=== PATIENT | male | born 1965 | race Two or more races ===

== ENCOUNTER 2023-12-18 12:57 | Inpatient (IN) | payer OTHER ==
[2023-12-18 13:29] VITALS: BMI 21.4
[2023-12-18] MEDS ORDERED: POLYETHYLENE GLYCOL (HEALTHYLAX) 3350 17 GM PACKET PO PRN (15:38)
[2023-12-18] MEDS ORDERED: BISMUTH SUBSALICYLATE 524 MG/30 ML PO PRN (15:38)
[2023-12-18] MEDS ORDERED: ONDANSETRON *ODT* 4 MG TABLET SL PRN (15:38)
[2023-12-18] MEDS ORDERED: MAG HYDROX/AL HYDROX/SIMETH 30 ML UNIT-DOSE CUP PO PRN (15:38)
[2023-12-18] MEDS ORDERED: ACETAMINOPHEN 325 MG TABLET (FP) PO PRN (15:38)
[2023-12-18] MEDS ORDERED: NALOXONE HCL (KLOXXADO) 8 MG SPRAY NS PRN (15:38)
[2023-12-18] MEDS ORDERED: BENZONATATE 200 MG CAPSULE PO PRN (15:38)
[2023-12-18] MEDS ORDERED: LOPERAMIDE HCL 2 MG CAPSULE PO PRN (15:38)
[2023-12-18] MEDS ORDERED: BENZOCAINE/MENTHOL (CHLORASEPTIC ) LOZENGE MM PRN (15:38)
[2023-12-18] MEDS ORDERED: DICYCLOMINE HCL 10 MG CAPSULE PO PRN (15:38)
[2023-12-18] MEDS ORDERED: IBUPROFEN 400 MG TABLET (FP) PO PRN (15:38)
[2023-12-18] MEDS ORDERED: guaiFENesin 600 MG TABLET.ER (FP) PO PRN (15:38)
[2023-12-18] MEDS ORDERED: IBUPROFEN 600 MG TABLET (FP) PO PRN (15:38)
[2023-12-18] MEDS ORDERED: NALOXONE HCL 0.4 MG/ML VIAL IM PRN (15:38)
[2023-12-18] MEDS ORDERED: MAGNESIUM HYDROX 2400MG/30ML ORAL SUSPENSION 30 ML CUP PO PRN (15:38)
[2023-12-18] MEDS ORDERED: methaDONE HCL 10 MG TABLET (FOR DETOX USE ONLY) ONE (16:02)
[2023-12-18] MEDS ORDERED: PRENATAL VITAMINS W/ FOLIC ACID TABLET (FP) PO ONE (16:03)
[2023-12-18] MEDS: methaDONE HCL 10 MG TABLET (FOR DETOX USE ONLY) PO ONE (16:07)
[2023-12-18] MEDS: PRENATAL VITAMINS W/ FOLIC ACID TABLET (FP) PO SCH (16:10)
[2023-12-18] MEDS: cloNIDine HCL 0.1 MG TABLET PO SCH (17:42)
[2023-12-18] MEDS: THIAMINE 100 MG TABLET PO SCH (22:09)
[2023-12-18] MEDS: MELATONIN 5 MG TABLETS PO SCH (22:09)
[2023-12-18] MEDS: BUPRENORPHINE/NALOXONE 0.5 MG/0.125 MG FILM SL ONE (23:05)
[2023-12-19] MEDS: hydrOXYzine PAMOATE 25 MG CAPSULE (FP) PO PRN (10:10)
[2023-12-19] MEDS: METHOCARBAMOL 500 MG TABLET PO PRN (10:10)
[2023-12-19] MEDS: BUPRENORPHINE/NALOXONE 0.5 MG/0.125 MG FILM SL SCH (10:10)
[2023-12-19 11:42] LABS: HEMATOCRIT 40.4 % (35.4-49); HEMOGLOBIN 13.3 GM/dL (11.7-16.9); MCH 28.3 pg (25.7-33.7); MCHC 32.9 g/dl (32.0-35.9); MEAN PLT VOLUME 9.2 fl (7.5-11.1); PLATELET COUNT 209 10^3/uL (134-434); RDW 13.1 % (11.9-15.9); WHITE BLOOD COUNT 8.4 K/mm3 (4.0-10.0)
[2023-12-19 11:51] LABS: CHLORIDE 103 mmol/L (98-107); POTASSIUM 4.3 mmol/L (3.5-5.1); SODIUM 135 mmol/L (136-145)
[2023-12-19 12:03] LABS: ALBUMIN 3.7 g/dl (3.4-5.0); BLOOD UREA NITROGEN 21.5 mg/dL (7-18); CREATININE 1.3 mg/dL (0.55-1.3); GLUCOSE,RANDOM 116 mg/dL (74-106)
[2023-12-19 12:04] LABS: ANION GAP 3 mmol/L (4-13); CO2 29 mmol/L (21-32); SGOT/AST 90 U/L (15-37)
[2023-12-19 12:05] LABS: BILIRUBIN,TOTAL 1.9 mg/dL (0.2-1); CALCIUM 9.3 mg/dL (8.5-10.1); TOT PROT 7.4 g/dl (6.4-8.2)
[2023-12-19 12:06] LABS: ALK PHOS 137 U/L (45-117); SGPT/ALT 47 U/L (13-61)
[2023-12-20] MEDS ORDERED: BUPRENORPHINE/NALOXONE 2 MG/0.5 MG FILM PACKET SL SCH (10:00)
[2023-12-20] MEDS: methaDONE HCL 10 MG TABLET (FOR DETOX USE ONLY) PO ONE (10:12)
[2023-12-21] MEDS ORDERED: BUPRENORPHINE/NALOXONE 4 MG/1 MG FILM PACKET SL SCH (10:00)
[2023-12-22] MEDS: P-EPHED 60MG/TRIPROLIDI 2.5MG TABLET PO PRN (02:10)
[2023-12-22] MEDS: methaDONE HCL 10 MG TABLET (FOR DETOX USE ONLY) PO ONE (09:48)
[2023-12-22] MEDS ORDERED: BUPRENORPHINE/NALOXONE 8 MG/2 MG FILM PACKET SL SCH (10:00)
[2023-12-23 05:56] VITALS: BP 120/73; PULSE 68; RESP 16; TEMP 97.8
[2023-12-23] MEDS ORDERED: BUPRENORPHINE/NALOXONE 8 MG/2 MG FILM PACKET SL SCH (10:00)
[2023-12-23] MEDS ORDERED: diphenhydrAMINE HCL 25 MG CAPSULE (FP) PO ONE (10:08)
[2023-12-23] MEDS: diphenhydrAMINE HCL 50 MG CAPSULE PO ONE (10:10)
== END 2023-12-23 10:11 | disposition home or self-care (01) | DRG 773 ==
LOC: YASAS 12:57 → Y3N 15:27
PROVIDERS: ADMIT Allergy & Immunology; ATTEND Surgery
PROC: HZ2ZZZZ Detoxification Services for Substance Abuse Treatment (ICD-10-PCS; principal; 2023-12-18)
DX: F11.23 Opioid dependence with withdrawal (principal); F15.10 Other stimulant abuse, uncomplicated; F17.210 Nicotine dependence, cigarettes, uncomplicated; Z59.00 Homelessness unspecified; Z28.310 Unvaccinated for COVID-19; Z28.9 Immunization not carried out for unspecified reason
CPT/HCPCS: 36415; 80053; 80307; 85027; 86780; 93005; 93010